=== PATIENT | male | born 2005 | race Caucasian/White ===

== ENCOUNTER 2024-09-08 20:05 | Emergency (ER) | payer OTHER, SELFPAY ==
[2024-09-08 20:05] VITALS: BP 112/86; PULSE 88; RESP 20; TEMP 36.8; O2SAT 99; BMI 20.7
--- NOTE | 2024-09-08 20:23 | EX.ED.DYSGE1 ---
HPI History of Present Illness Chief Complaint: Anxiety Detail of Chief Complaint: Patient believes he had an anxiety reaction. He presents to make sure Informant: patient Onset/Context/Timing Onset: Hours Context: Sudden Onset Timing: Intermittent Quality: Vagal type response Location: Dorm Current Severity: Gone Maximum Severity: Moderate Worsened by: Patient felt warm got sweaty nauseous dry heaves lightheadedness Relieved by: Not applicable Associated Symptoms Associated Symptoms: Per HPI narrative Narrative Narrative: Patient is a 39-year-old male with history of depression on fluoxetine. Patient thought he was having exact reaction took his Loxitane. He became flushed felt warm got sweaty had dry heaves. He was slightly lightheaded. He had tingling in facial and extremities. He still complains of some tingling in his fingers. He has no other complaints. Prior similar symptoms: No Recent Illness/Hospitalization: No PFSH PFSH Allergy/AdvReac Type Severity Reaction Status Date / Time No Known Allergies Allergy Verified 09/08/24 20:05 Social History (Updated 09/08/24 @ 20:[address] Darryl Roca MD) household members: family ROS ROS ED Constitutional Constitutional ED: Denies chills, fever(s), subjective or sweats Eyes Eyes: Denies blurry vision, change in vision or diplopia ENT ENT ED: Denies ear pain or rhinorrhea Cardiovascular Cardiovascular: Denies chest pain or palpitations Respiratory/Chest Respiratory/Chest: Denies cough, dyspnea or dyspnea on exertion Gastrointestinal Gastrointestinal: Reports nausea and vomiting; Denies abdominal pain Musculoskeletal Musculoskeletal: Denies arthralgias, back pain or myalgias Integumentary Denies rash Psychiatric Psychiatric: Denies anxiety Hematologic/Lymphatic Hematologic/Lymphatic: Reports systems reviewed and no addt'l complaints, except as documented EXAM Physical Exam Const Vital Signs: 09/08/24 20:05 Temperature 98.2 F Temperature Source Temporal Pulse Rate 88 Respiratory Rate 20 H Blood Pressure 112/86 H Blood Pressure Mean 94 Pulse Ox 99 Oxygen Delivery Method Room Air Positive well nourished and well developed General Appearance ED: well developed and NAD; Negative for cyanotic, diaphoretic or pallor HEENT Reports moist mucous membranes HEENT Narrative: Head is atraumatic no cephalic. Ears normal. Nares patent. Negative [place] sign. Eyes PERRL and EOMs intact bilaterally General Eye ED: Negative for pale conjunctiva or scleral icterus Neck no lymphadenopathy, supple and no JVD Chest Wall inspection of chest normal and palpation of chest normal Resp normal respiratory effort and clear to auscultation bilaterally Cardio regular rate, regular rhythm, S1 normal heart sound, S2 normal heart sound and no murmurs GI normal to inspection, nondistended, normoactive bowel sounds, non-tender, non-distended and no masses; Negative for hepatosplenomegaly Extremity normal to inspection Neuro oriented x3, CN's II-XII intact bilaterally and no sensory deficits noted Sensorium / Orientation: alert Motor Exam: strength 5/5 throughout Psych mental status grossly normal Skin no rashes or lesions noted, no wounds and skin turgor normal General Skin Exam: elasticity normal; Negative for jaundice or pallor MDM MDM MDM Narrative Medical decision making narrative: Patient's symptoms consistent with vasovagal response. This is not an anxiety reaction. Patient was discharged home in stable condition. He has history of depression. He has had ill contacts with classmates have been sick recently. Discharge Plan Triage Chief Complaint: Anxiety ED Provider: Darryl Roca Dx/Rx/DC Orders Clinical Impression: Vasovagal episode Instructions: ED Near-Fainting- Vagal Reaction Primary Care Provider: Care Physician,No Primary Referrals: Care Physician,No Primary [Primary Care Provider] - Print Language: Italian Disposition Disposition: Home, Self Care
== END 2024-09-08 20:34 | disposition home or self-care (01) ==
LOC: ED 20:29
PROVIDERS: Emergency Provider Emergency Medicine; PCP Pediatrics; Visit Provider Emergency Medicine
DX: R55 Syncope and collapse (principal); F41.9 Anxiety disorder, unspecified
CPT/HCPCS: 99282

== ENCOUNTER 2024-09-11 21:39 | Emergency (ER) | payer OTHER, SELFPAY ==
[2024-09-11 21:39] VITALS: BP 136/87; PULSE 84; RESP 19; TEMP 36.8; O2SAT 100; BMI 19.8
--- NOTE | 2024-09-11 22:17 | EDS_ITS ---
HPI History of Present Illness Chief Complaint: Anxiety Informant: patient Narrative Narrative: Presents here for evaluation. Student. Last few days had concerns for second anxiety attack. He was seen a few days ago diagnosed with vasovagal episode. Discussing with the patient he would have abdominal cramping starts dry heaving leading to him breathing fast tingling face hands occasional lightheaded symptoms. He does admit to marijuana use every other day for the past 4 years. Prior few days ago no history of similar. He is on fluoxetine for depression does not take it regularly however for last couple days and started taking it. Denies suicidal homicidal ideations. Denies alcohol use. He denies any visual or auditory hallucinations. He states he does have the feeling of impending doom when everything happens. Also spoke with his mother on the phone discussed his history, she states this first time he has had symptoms like this. Due to cramping to his fingers, he had 1 episode of vomiting yesterday they would like basic lab work checked. Prior similar symptoms: Yes PFSH PFSH Medical History Anxiety Home Medications ?Medication ?Instructions ?Recorded ?Last Taken ?Type hydroxyzine HCl 25 mg tablet 25 mg PO TID PRN anxiety #20 tabs 09/11/24 Unknown Rx ondansetron 4 mg disintegrating 4 mg PO Q8H PRN PRN Na usea #10 tabs 09/11/24 Unknown Rx tablet Allergy/AdvReac Type Severity Reaction Status Date / Time No Known Allergies Allergy Verified 09/11/24 21:40 Social History household members: family Smoking Status: Current every day smoker tobacco type: e-cigarettes ROS ROS ED Constitutional Constitutional ED: Denies chills, fever(s) or sweats ENT ENT ED: Denies sore throat Cardiovascular Cardiovascular: Denies chest pain, leg edema, palpitations or racing heartbeat Respiratory/Chest Respiratory/Chest: Denies cough, dyspnea or dyspnea on exertion Gastrointestinal Gastrointestinal: Reports abdominal pain, nausea and vomiting; Denies diarrhea Genitourinary Genitourinary ED: Denies dysuria, hematuria or urinary frequency Musculoskeletal Musculoskeletal: Reports other Details: Cramping ; Denies back pain, extremity pain or neck pain Integumentary Denies rash or wounds Neurologic Neurologic: Reports paresthesias; Denies headache(s) or weakness Psychiatric Psychiatric: Reports anxiety, depression and other Details: Denies auditory or visual hallucinations. ; Denies suicidal ideation or suicidal thoughts EXAM Physical Exam Const Vital Signs: 09/11/24 21:39 Temperature 98.3 F Temperature Source Oral Pulse Rate 84 Respiratory Rate 19 H Blood Pressure 136/87 H Blood Pressure Mean 103 Pulse Ox 100 Oxygen Delivery Method Room Air MDM MDM MDM Narrative Medical decision making narrative: Interventions / MDM: Differential diagnosis: Hyperventilation syndrome, cannabis hyperemesis syndrome, history of anxiety Diagnosis considered but do not suspect: N/A My EKG interpretation: N/A Imaging independently reviewed and interpreted by myself: N/A External documents reviewed: N/A Test considered but not ordered:N/A ED course: Patient vital stable nontoxic. History of anxiety and depression. Denies suicidal homicidal ideations. Discussed with the patient he states initial symptoms will be abdominal cramping and dry heaving leading to hyperventilation. This then leads to his paresthesias and cramping. Discussed with patient mother over the phone, with his marijuana history, this could be the trigger leading to his abdominal cramping. This would trigger his stress response leading to hyperventilation and feelings of impending doom. He does have increasing stress due to failing a recent tests. He denies suicidal or homicidal ideations. For abdominal symptoms agrees with capsaicin cream. I will order for hydroxyzine. Will check labs and toxicology screen. Labs stable potassium low normal at 3.3. Due to cramping, oral potassium given for optimization. Clinically feeling better on reevaluation. Discussed marijuana cessation with the patient. Short prescription for hydroxyzine and Zofran written. All questions answered. Re-evaluation: stable Disposition discussed with patient/family/significant other: Patient Case discussed with consulting clinician: N/A This note was generated with [employer] dictation software. It may contain incorrect words, spelling, and punctuation that were not noted in checking the note before signing. Lab Data Attestation: I reviewed the patient's lab results. Labs: Laboratory Results - last 24 hr 09/11/24 09/11/24 22:21 22:29 WBC 8.4 RBC 5.01 Hgb 14.8 Hct 42.9 MCV 85.6 MCH 29.5 MCHC 34.5 RDW Std Deviation 37.2 RDW Coeff of Rina 12.0 Plt Count 297 MPV 10.1 Immature Gran % (Auto) 0.200 Neut % (Auto) 76.4 H Lymph % (Auto) 17.8 L [place] % (Auto) 4.7 Eos % (Auto) 0.5 Baso % (Auto) 0.4 Absolute Neuts (auto) 6.4 Absolute Lymphs (auto) 1.49 Nucleated RBC % 0 Sodium 137 Potassium 3.3 Chloride Direct 102 Carbon Dioxide 21.5 L Anion Gap 14 BUN 12 Creatinine 1.08 Estim Creat Clear Calc 96.60 Est GFR (MDRD) Non-Af 101 BUN/Creatinine Ratio 11.2 Glucose 155 H Calcium 10.2 Urine Opiates Screen NEGATIVE U Buprenorphine Qual NEGATIVE Ur Oxycodone Screen NEGATIVE Urine Methadone Screen NEGATIVE Urine Fentanyl Screen NEGATIVE Ur Barbiturates Screen NEGATIVE Ur Phencyclidine Scrn NEGATIVE Ur Amphetamines Screen NEGATIVE U Benzodiazepines Scrn NEGATIVE Urine Cocaine Screen NEGATIVE U Cannabinoids Screen PREUMTIVE POSITIVE Ethyl Alcohol < 10.1 Discharge Plan Triage Chief Complaint: Anxiety ED Provider: Timmy Jean Dx/Rx/DC Orders Clinical Impression: HVS (hyperventilation syndrome), Anxiety, Cannabis dependence Instructions: ED Hyperventilation Syndrome, ED Marijuana Abuse, ED Panic Attack Prescriptions: New hydroxyzine HCl 25 mg tablet 25 mg PO TID PRN (Reason: anxiety) Qty: 20 0RF ondansetron 4 mg tablet,disintegrating 4 mg PO Q8H PRN PRN (Reason: Nausea) Qty: 10 0RF Primary Care Provider: Care Physician,No Primary Referrals: [facility] Doctor,Out of [Non-Staff] - Activity Restrictions/Additional Instructions: White count 8.4 hemoglobin 14.8. Sodium 137 potassium 3.3, oral replacement given. Creatinine 1.08. Avoid marijuana as this can aggravate abdominal symptoms with vomiting. Continue oral fluids. Use hydroxyzine as needed. Continue your fluoxetine. Zofran as needed. Follow-up with your doctors. Print Language: Hebrew Disposition Disposition: Home, Self Care Discharge Date/Time: 09/11/24 23:08
[2024-09-11] MEDS: Capsaicin 0.025% 1 APPLIC Tube TOPICAL (22:19)
[2024-09-11] MEDS: hydrOXYzine PAM 25 MG Capsule PO (22:20)
[2024-09-11] MEDS: Ondansetron ODT 4 MG Tablet PO (22:24)
[2024-09-11 22:32] LABS: Absolute Lymphocyte Count 1.49 X10^3/uL (0.83-4.51); Absolute Neutrophil Count 6.4 X10^3/uL (2.0-7.7); Basophil# 0.03 X10^3/uL; Basophil% 0.4 % (0-1); Eosinophil# 0.04 X10^3/uL; Eosinophils% 0.5 % (0-5); Hematocrit 42.9 % (40-54); Hemoglobin 14.8 g/dL (13.0-16.5); Lymphocyte # 1.49 X10^3/ul (0.83-4.51); Lymphocyte % 17.8 % (19-41); Mean Corp Hgb Conc 34.5 g/dL (32-36); Mean Corpuscular Hgb 29.5 pg (27.0-32.0); Mean Corpuscular Volume 85.6 fL (80-94); Mean Platelet Vol. 10.1 fl (6.2-12.0); Monocyte# 0.39 X10^3/uL; Monocyte% 4.7 % (0-10); NRBC Flagged by Analyzer 0 % (0-5); Neutrophil # 6.38 X10^3/uL (2.7-7.7); Neutrophil % 76.4 % (47-70); Platelet Count 297 K/mm3 (150-450); RBC Distribution Width SD 37.2 fl (35.1-43.9); Red Blood Count 5.01 M/mm3 (4.6-6.2); White Blood Count 8.4 K/mm3 (4.4-11.0)
[2024-09-11 22:53] LABS: Alcohol, Blood (Medical)-Serum < 10.1 mg/dL (<=10.0)
[2024-09-11 22:54] LABS: Anion Gap 14 (5-15); BUN 12 mg/dL (4-19); BUN/Creat Ratio 11.2 RATIO (10-20); Calcium 10.2 mg/dL (7.6-11.0); Carbon Dioxide 21.5 mmol/L (22.0-29.0); Chloride 102 mmol/L (96-108); Creatinine, Serum 1.08 mg/dL (0.70-1.20); EST Glomerular Filtration Rate 101 (>60); Glucose 155 mg/dL (70-99); Potassium 3.3 mmol/L (3.3-5.1); Sodium Level 137 mmol/L (133-145)
[2024-09-11 22:55] LABS: Amphetamine Urine NEGATIVE (<1000 ng/mL); Barbiturate Urine NEGATIVE (< 200 ng/mL); Benzodiazepine Urine NEGATIVE (< 200 ng/mL); Buprenorphine Urine NEGATIVE (< 200 ng/mL); Cocaine Urine NEGATIVE (< 300 ng/mL); Fentanyl, Urine NEGATIVE; Methadone Urine NEGATIVE (< 300 ng/mL); Opiates Urine NEGATIVE (< 300 ng/mL); Oxycodone, Urine NEGATIVE (< 100 ng/mL); PCP Urine NEGATIVE (< 25 ng/mL); THC Urine PREUMTIVE POSITIVE (< 50 ng/mL)
[2024-09-11] MEDS: Potassium Chloride Oral Tablet 20 MEQ PO (23:01)
== END 2024-09-11 23:08 | disposition home or self-care (01) ==
PROVIDERS: Emergency Provider Emergency Medicine; Visit Provider Emergency Medicine
DX: R06.4 Hyperventilation (principal); F12.20 Cannabis dependence, uncomplicated; F41.9 Anxiety disorder, unspecified; F17.290 Nicotine dependence, other tobacco product, uncomplicated
CPT/HCPCS: 80048; 80307; 82077; 85025; 99282